=== PATIENT | male | born 1960 | race African-American/Black ===

== ENCOUNTER 2017-12-03 13:02 | Emergency (ER) | payer BC, OTHER | END 2017-12-03 13:17 | disposition home or self-care (01) | LOC: BURERS 13:02 | DX: B34.9 Viral infection, unspecified (principal); I10 Essential (primary) hypertension | CPT/HCPCS: 99283 ==

== ENCOUNTER 2018-01-10 08:52 | Emergency (ER) | payer OTHER | END 2018-01-10 09:56 | disposition home or self-care (01) | LOC: BURERS 08:52 | DX: H60.8X2 Other otitis externa, left ear (principal); I10 Essential (primary) hypertension | CPT/HCPCS: 99282 ==

== ENCOUNTER 2022-03-26 13:32 | Emergency (ER) | payer OTHER | END 2022-03-26 13:48 | disposition home or self-care (01) | LOC: BURERS 13:32 | DX: S46.911A Strain of unspecified muscle, fascia and tendon at shoulder and upper arm level, right arm, initial encounter (principal); I10 Essential (primary) hypertension; X50.0XXA Overexertion from strenuous movement or load, initial encounter | CPT/HCPCS: 99283 ==